=== PATIENT | male | born 1940 | race Caucasian/White ===

== ENCOUNTER 2019-04-11 08:33 | Emergency (ER) | payer OTHER ==
--- NOTE | 2019-04-11 09:21 | ED ---
Throat Pain/Nasal Congestion - HPI Summary HPI Summary: This pt is a 78 Y/O M presenting to [facility] with a CC of throat pain when swallowing that started yesterday and is currently rated an 8/10. He states that usually his throat feels fine unless he swallows. He denies any fevers, chills, N/V, rhinorrhea, and CP. He states that he has no alleviating factors. He also states that he has not been around anyone who is sick. He has a PMHx of COPD. - History of Current Complaint Chief Complaint: EDThroatPain Time Seen by Provider: 04/11/19 08:42 Hx Obtained From: Patient Onset/Duration: Sudden Onset - 04/10/19, Still Present Severity: Severe - 8/10 Associated Signs And Symptoms: Negative: Nasal Discharge Cough: None - Allergies/Home Medications Allergies/Adverse Reactions: Allergies Allergy/AdvReac Type Severity Reaction Status Date / Time No Known Allergies Allergy Verified 04/11/19 08:38 PMH/Surg Hx/FS Hx/Imm Hx Previously Healthy: Yes Cardiovascular History: Reports: Hx Hypertension Respiratory History: Reports: Hx Chronic Obstructive Pulmonary Disease (COPD) - Immunization History Date of Tetanus Vaccine: 2009 Date of Influenza Vaccine: None Infectious Disease History: No Infectious Disease History: Denies: Traveled Outside the [place] in Last 30 Days - Social History Alcohol Use: None Substance Use Type: Reports: None Smoking Status (MU): Former Smoker Review of Systems Negative: Fever, Chills Positive: Sore Throat. Negative: Nasal Discharge Negative: Chest Pain Negative: Vomiting, Nausea All Other Systems Reviewed And Are Negative: Yes Physical Exam - Summary Physical Exam Summary: Appearance: The patient is well-nourished in no acute distress and in no acute pain. Skin: The skin is warm and dry and skin color reflects adequate perfusion. HEENT: The head is normocephalic and atraumatic. The pupils are equal and reactive. The conjunctivae are clear and without drainage. Nares are patent and without drainage. Mouth reveals moist mucous membranes and the throat is Erythematous posterior pharynx and he has Mild lymphadenopathy. The external ears are intact. The ear canals are patent and without drainage. The tympanic membranes are intact. Neck: The neck is supple with full range of motion and non-tender. There are no carotid bruits. There is no neck vein distension. Respiratory: Chest is non-tender. Lungs are clear to auscultation and breath sounds are symmetrical and equal. Cardiovascular: Heart is regular rate and rhythm. There is no murmur or rub auscultated. There is no peripheral edema and pulses are symmetrical and equal. Abdomen: The abdomen is soft and non-tender. There are normal bowel sounds heard in all four quadrants and there is no organomegaly palpated. Musculoskeletal: There is no back tenderness noted. Extremities are non-tender with full range of motion. There is good capillary refill. There is no peripheral edema or calf tenderness elicited. Neurological: Patient is alert and oriented to person, place and time. The patient has symmetrical motor strength in all four extremities. Cranial nerves are grossly intact. Deep tendon reflexes are symmetrical and equal in all four extremities. Psychiatric: The patient has an appropriate affect and does not exhibit any anxiety or depression. Triage Information Reviewed: Yes Vital Signs On Initial Exam: Initial Vitals Temp Pulse Resp BP Pulse Ox 97.9 F 105 14 98/77 96 04/11/19 08:36 04/11/19 08:36 04/11/19 08:36 04/11/19 08:36 04/11/19 08:36 Vital Signs Reviewed: Yes Diagnostics - Vital Signs Vital Signs Temp Pulse Resp BP Pulse Ox 04/11/19 08:36 97.9 F 105 14 98/77 96 - Laboratory Lab Statement: Any lab studies that have been ordered have been reviewed, and results considered in the medical decision making process. Re-Evaluation - Re-Evaluation First Eval Re-Evaluation Time: 10:26 Change: Improved Comment: Pt was informed that the rapid strep test was negative and the he will be discharged with a Dx of Herpangina. He requested EENT Course/Dx - Course Course Of Treatment: Mr. Day presented with about a day of sore throat. Clinically his throat looked like herpangina. Rapid strep test was negative and I recommended symptomatic treatment. - Diagnoses Provider Diagnoses: Coxsackieviruses Discharge ED - Sign-Out/Discharge Documenting (check all that apply): Patient Departure - discharge Patient Received Moderate/Deep Sedation with Procedure: No - Discharge Plan Condition: Stable Disposition: HOME Prescriptions: traMADol TAB* [Ultram*] 50 mg PO Q6HR PRN #20 tab MDD 4 PRN Reason: Pain Patient Education Materials: Hand, Foot, and Mouth Disease (ED) Referrals: Non Staff,Doctor [Medical Doctor] - 3 Days Additional Instructions: PLEASE FOLLOW UP WITH YOUR PRIMARY CARE PROVIDER IN 2-3 DAYS AND RETURN TO THE EMERGENCY DEPARTMENT FOR ANY NEW OR WORSENING SYMPTOMS. Take the prescribed medications as directed. - Billing Disposition and Condition Condition: STABLE Disposition: Home - Attestation Statements Document Initiated by Harry: Yes Documenting Scribe: Florian Duran Provider For Whom Harry is Documenting (Include Credential): Scott Ortega MD Scribe Attestation: Florian Reza, scribed for Scott Ortega MD on 04/11/19 at 1128. Scribe Documentation Reviewed: Yes Provider Attestation: The documentation as recorded by the Florian trimble accurately reflects the service I personally performed and the decisions made by me, Scott Ortega MD Status of Scribe Document: Viewed
[2019-04-11 09:38] LABS: Rapid Strep Molecular Negative (Negative)
[2019-04-11 10:45] VITALS: BP 100/70
== END 2019-04-11 10:44 | disposition home or self-care (01) ==
LOC: ED 08:33
DX: B34.1 Enterovirus infection, unspecified (principal); J44.9 Chronic obstructive pulmonary disease, unspecified; R06.02 Shortness of breath; Z87.891 Personal history of nicotine dependence; I10 Essential (primary) hypertension
CPT/HCPCS: 87651; 99282

== ENCOUNTER 2021-07-17 15:14 | Inpatient (IN) ==
[2021-07-17 16:03] LABS: ABS Eosinophils 0.1 10^3/ul (0-0.6); ABS Lymphocytes 0.5 10^3/ul (1.0-4.8); ABS Monocytes 0.6 10^3/ul (0-0.8); ABS Neutrophils 13.9 10^3/ul (1.5-7.7); Eosinophil % 0.4 %; Hematocrit 52 % (42-52); Hemoglobin 17.9 g/dL (14.0-18.0); Lymphocyte % 3.4 %; Mean Corpuscular HGB Conc 35 g/dL (31-36); Mean Corpuscular Hemoglobin 30 pg (27-31); Mean Corpuscular Volume 87 fL (80-94); Mean Platelet Volume 9.3 fL (7.4-10.4); Nucleated Red Blood Cells % 0.1; Platelet Count 230 10^3/uL (150-450); Red Blood Count 5.97 10^6 /uL (4.18-5.48); Red Cell Distribution Width 13 % (10-15); White Blood Count 15.1 10^3/uL (3.5-10.8)
[2021-07-17 16:15] LABS: INR 1.07 (0.86-1.15)
[2021-07-17] MEDS ORDERED: Lactated Ringers 1000 ml BAG 1,000 ML IV ONE ×3 (16:15→19:56)
[2021-07-17 16:37] LABS: Troponin I 0.02 ng/mL (<0.03)
[2021-07-17 16:56] LABS: TSH Ultra Thyroid Stim Horm 2.22 mcIU/mL (0.34-5.60)
[2021-07-17 17:01] LABS: Albumin 5.2 g/dL (3.2-5.2); Albumin/Globulin Ratio 1.8 (1-3); Calcium 11.4 mg/dL (8.6-10.3); Globulin 2.9 g/dL (2-4); Magnesium 2.2 mg/dL (1.9-2.7); Total Bilirubin 0.6 mg/dL (0.2-1.0); Total Protein 8.1 g/dL (6.4-8.9); eGFR CKD-EPI 93.5 (>60)
[2021-07-17 17:14] LABS: Influenza A Molecular Negative (Negative); Influenza B Molecular Negative (Negative); Rapid COVID-19 Molecular Undetected (Undetected)
[2021-07-17 17:25] LABS: Activated Partial Thrombo Time 31.1 seconds (26.0-38.0)
[2021-07-17] MEDS ORDERED: Morphine 4 MG/ML VIAL (1 ml) IV ONE (17:56)
[2021-07-17] MEDS ORDERED: Diltiazem IV push/loading dose 5 MG/ML 5 ML vial (25 mg) IV SLOW PU ONE (18:25)
[2021-07-17] MEDS ORDERED: Iohexol 350 (CONTRAST) 500 ML MDV IV ONE (18:45)
[2021-07-17 18:55] LABS: Urine Bacteria Absent (Absent); Urine Red Blood Cell Trace(0-2/hpf) (Absent); Urine White Blood Cell Trace(0-5/hpf) (Absent)
[2021-07-17 19:02] LABS: Urine Appearance Clear; Urine Bilirubin Negative (Negative); Urine Blood Negative (Negative); Urine Color Yellow; Urine Glucose Negative (Negative); Urine Ketones Negative (Negative); Urine Nitrite Negative (Negative); Urine Protein Negative (Negative); Urine Specific Gravity 1.008 (1.002-1.030); Urine Urobilinogen Negative (Negative)
[2021-07-17] MEDS ORDERED: Albuterol HFA INHALER 8 gm MDI INH PRN (21:35)
[2021-07-17] MEDS ORDERED: Mometasone/Formoter 200/5 MDI INH SCH (22:00)
[2021-07-17 22:09] LABS: C Reactive Protein 8.3 mg/L (<8.01); Phosphorus 2.9 mg/dL (2.5-5.0)
[2021-07-17 22:20] LABS: PSA Screening Total 14.168 ng/mL (0-4.000)
[2021-07-17 22:39] LABS: Troponin I 0.03 ng/mL (<0.03)
[2021-07-17] MEDS ORDERED: Lactated Ringers 1000 ml BAG 1,000 ML IV SCH (23:00)
[2021-07-17] MEDS: Heparin 5000 UNITS/ML 1 mL VIAL SUBCUT SCH (23:23)
[2021-07-18] MEDS ORDERED: SPIRIVA Respimat (tiotropium) 2.5 mcg/inh Inhaler INH SCH (01:00)
[2021-07-18 02:46] LABS: ABS Lymphocytes 0.4 10^3/ul (1.0-4.8); ABS Monocytes 0.3 10^3/ul (0-0.8); ABS Neutrophils 10.2 10^3/ul (1.5-7.7); Eosinophil % 0.4 %; Hematocrit 42 % (42-52); Hemoglobin 14.4 g/dL (14.0-18.0); Lymphocyte % 3.9 %; Mean Corpuscular HGB Conc 34 g/dL (31-36); Mean Corpuscular Hemoglobin 30 pg (27-31); Mean Corpuscular Volume 86 fL (80-94); Mean Platelet Volume 9.7 fL (7.4-10.4); Platelet Count 173 10^3/uL (150-450); Red Blood Count 4.86 10^6 /uL (4.18-5.48); Red Cell Distribution Width 13 % (10-15)
[2021-07-18 03:04] LABS: Calcium 9.5 mg/dL (8.6-10.3); Potassium 4.2 mmol/L (3.5-5.0); eGFR CKD-EPI 97.8 (>60)
[2021-07-18 03:07] LABS: Troponin I 0.02 ng/mL (<0.03)
[2021-07-18] MEDS: Heparin 5000 UNITS/ML 1 mL VIAL SUBCUT SCH ×3 (05:19→20:15)
[2021-07-18] MEDS: SPIRIVA Respimat (tiotropium) 2.5 mcg/inh Inhaler INH SCH (05:21)
[2021-07-18] MEDS: Mometasone/Formoter 200/5 MDI INH SCH ×2 (07:01→19:18)
[2021-07-18] MEDS ORDERED: Iohexol 300 (CONTRAST) 10 ML SDV IV ONE (11:45)
[2021-07-19 05:21] LABS: Hematocrit 39 % (42-52); Hemoglobin 13.6 g/dL (14.0-18.0); Mean Corpuscular HGB Conc 35 g/dL (31-36); Mean Corpuscular Hemoglobin 30 pg (27-31); Mean Corpuscular Volume 86 fL (80-94); Mean Platelet Volume 10.3 fL (7.4-10.4); Platelet Count 170 10^3/uL (150-450); Red Blood Count 4.49 10^6 /uL (4.18-5.48); Red Cell Distribution Width 13 % (10-15); White Blood Count 8.1 10^3/uL (3.5-10.8)
[2021-07-19 05:38] LABS: Calcium 9.3 mg/dL (8.6-10.3); Magnesium 1.9 mg/dL (1.9-2.7); Potassium 3.5 mmol/L (3.5-5.0)
[2021-07-19] MEDS: Heparin 5000 UNITS/ML 1 mL VIAL SUBCUT SCH (05:42)
[2021-07-19] MEDS: SPIRIVA Respimat (tiotropium) 2.5 mcg/inh Inhaler INH SCH (07:24)
[2021-07-19] MEDS: Mometasone/Formoter 200/5 MDI INH SCH (07:24)
[2021-07-19] MEDS ORDERED: Albuterol/Ipratropium NEB.SOL (2.5/0.5 MG) 3 ML NEB.SOLN INH SCH (13:00)
[2021-07-19] MEDS ORDERED: Potassium Chlor 20 meq TAB.ER PO ONE (13:15)
[2021-07-19] MEDS ORDERED: Magnesium Sulfate 2 gm BAG 2 GM/50 ML BAG IVPB ONE (13:15)
[2021-07-19] MEDS ORDERED: KCL 20 MEQ/100 ML IVPREMIX 20 MEQ/100 ML BAG IV ONE (13:15)
[2021-07-19] MEDS: KCL premix 10 MEQ/50 ML x 2 BAGS IV SCH ×2 (16:00→17:35)
[2021-07-19] MEDS: Enoxaparin 40 MG/0.4 ML SYR SUBCUT SCH (20:00)
[2021-07-20] MEDS: Mometasone/Formoter 200/5 MDI INH SCH ×3 (00:15→20:21)
[2021-07-20 05:14] LABS: Calcium 9.2 mg/dL (8.6-10.3); Magnesium 2.2 mg/dL (1.9-2.7); Potassium 3.6 mmol/L (3.5-5.0); eGFR CKD-EPI 108.5 (>60)
[2021-07-20] MEDS ORDERED: Potassium Chlor 20 meq TAB.ER PO ONE (07:37)
[2021-07-20] MEDS ORDERED: Levalbuterol HFA INHALER MDI INH PRN (13:38)
[2021-07-20] MEDS ORDERED: Lactated Ringers 500 ml BAG 500 ML IV ONE (16:51)
[2021-07-20] MEDS: Enoxaparin 40 MG/0.4 ML SYR SUBCUT SCH (20:55)
[2021-07-21] MEDS: Mometasone/Formoter 200/5 MDI INH SCH (09:26)
[2021-07-21 11:21] VITALS: BP 123/72
== END 2021-07-21 12:15 | disposition home or self-care (01) | DRG 181 ==
LOC: ED 15:14 → SUATTDRO 21:16 → EDHOLD 21:51 → MED 23:49
PROVIDERS: ADMIT Hospitalist; ATTEND Internal Medicine